=== PATIENT | female | born 1970 | race Two or more races ===

== ENCOUNTER 2025-01-16 09:30 | Inpatient (IN) | payer OTHER ==
[~2025-01-16] VITALS: Ht 165.1 cm; Wt 83.9 kg
[2025-01-16 10:46] VITALS: BP 128/78
[2025-01-16 11:24] LABS: COVID-19 AG NEGATIVE (NEGATIVE)
[2025-01-16] MEDS ORDERED: TRICOR (12:10)
[2025-01-16] MEDS ORDERED: METFORMIN (12:10)
[2025-01-16] MEDS ORDERED: PRAVASTATIN SOD40 MG (12:11)
[2025-01-22 09:41] LABS: RH NEGATIVE
[2025-01-22] MEDS ORDERED: MORPHINE SULFATE 4 MG/ML CARTRIDGE IV PRN (16:30)
[2025-01-22] MEDS ORDERED: OxyCODONE HCL 5 MG TABLET (ROXICODONE) PO PRN (16:30)
[2025-01-22] MEDS ORDERED: RINGERS SOLUTION,LACTATED 1,000 ML IV SCH (16:30)
[2025-01-22] MEDS ORDERED: KETOROLAC TROMETHAMINE 30 MG VIAL IV ONE (16:30)
[2025-01-22] MEDS ORDERED: CEFAZOLIN SODIUM 1,000 MG VIAL IV SCH (17:00)
[2025-01-22] MEDS ORDERED: METOCLOPRAMIDE HCL 5 MG/ML VIAL IV SCH (17:00)
[2025-01-22] MEDS ORDERED: SIMETHICONE 125 MG CAPSULE PO SCH (17:00)
[2025-01-22] MEDS ORDERED: MORPHINE SULFATE 4 MG/ML VIAL IV ONE (17:15)
[2025-01-22] MEDS ORDERED: METRONIDAZOLE/SODIUM CHLORIDE 500 MG/100 ML PIGGYBACK IV ONE (17:45)
[2025-01-22] MEDS ORDERED: CEFAZOLIN SODIUM 1,000 MG VIAL IV ONE (17:45)
[2025-01-22] MEDS ORDERED: ACETAMINOPHEN 500 MG GEL..CAP PO SCH (18:00)
[2025-01-22 18:32] LABS: BASO % 0.4 % (0.1-1.2); EOS # 0.05 (0.04-0.54); EOS % 0.9 % (0.7-7.0); LYMPH # 1.67 (1.18-3.74); LYMPH % 29.6 % (19.3-53.1); MEAN PLATELET VOLUME 12.70 fl (9.4-12.4); MONO # 0.19 (0.24-0.82); MONO % 3.4 % (4.7-12.5); NEUT # 3.69 (1.56-6.13); NEUT % 65.3 % (34.0-71.1); RED CELL DISTRIBUTION WIDTH 13.4 % (11.6-14.4)
[2025-01-22 18:52] LABS: BUN CREA RATIO 16.0 (7.0-25.0); CREATININE SERUM 0.75 mg/dL (0.55-1.02); GFR 79.93; GLUCOSE FASTING 139.0 mg/dL (65-100); OSMOLALITY SERUM 281.0 MOSM/KG (275-295)
[2025-01-22] MEDS ORDERED: CELECOXIB 200 MG CAPSULE PO SCH (21:00)
[2025-01-22] MEDS ORDERED: DOCUSATE SODIUM 100MG CAP PO SCH (21:00)
[2025-01-22] MEDS ORDERED: FAMOTIDINE/PF 20 MG/2 ML VIAL IV PUSH SCH (21:00)
[2025-01-22] MEDS ORDERED: GABAPENTIN 300 MG CAPSULE PO SCH (21:00)
[2025-01-22 21:30] VITALS: BP 129/79
[2025-01-23 02:51] VITALS: BP 118/76; O2SAT 95
[2025-01-23 03:33] LABS: BASO % 0.3 % (0.1-1.2); EOS # 0.01 (0.04-0.54); EOS % 0.1 % (0.7-7.0); LYMPH # 1.39 (1.18-3.74); LYMPH % 17.5 % (19.3-53.1); MEAN PLATELET VOLUME 12.80 fl (9.4-12.4); MONO # 0.28 (0.24-0.82); MONO % 3.5 % (4.7-12.5); NEUT # 6.25 (1.56-6.13); NEUT % 78.5 % (34.0-71.1); RED CELL DISTRIBUTION WIDTH 13.4 % (11.6-14.4)
[2025-01-23 03:56] LABS: BUN CREA RATIO 14.0 (7.0-25.0); CREATININE SERUM 0.69 mg/dL (0.55-1.02); GFR 88.01; GLUCOSE FASTING 128.0 mg/dL (65-100); OSMOLALITY SERUM 276.0 MOSM/KG (275-295)
[2025-01-23 08:48] VITALS: BP 99/62
[2025-01-23] MEDS ORDERED: ENOXAPARIN SODIUM 40 MG/0.4 ML SYRINGE SUBCUTANEO SCH (09:00)
== END 2025-01-23 12:01 | disposition home or self-care (01) | DRG 741 ==
LOC: O/R 01-22 06:42 → SURH 01-22 09:30 → OB/GYN 01-22 17:22 → SURH 01-22 18:15 → OB/GYN 01-23 12:01
PROVIDERS: Obstetrics & Gynecology; ADMIT Obstetrics & Gynecology Gynecologic Oncology; ATTEND Obstetrics & Gynecology Gynecologic Oncology
PROC: 07BC4ZZ Excision of Pelvis Lymphatic, Percutaneous Endoscopic Approach (ICD-10-PCS; 2025-01-22)
PROC: 0UT74ZZ Resection of Bilateral Fallopian Tubes, Percutaneous Endoscopic Approach (ICD-10-PCS; 2025-01-22)
PROC: 0UT24ZZ Resection of Bilateral Ovaries, Percutaneous Endoscopic Approach (ICD-10-PCS; 2025-01-22)
PROC: 0UT94ZZ Resection of Uterus, Percutaneous Endoscopic Approach (ICD-10-PCS; principal; 2025-01-22 18:15)
DX: C54.1 Malignant neoplasm of endometrium (principal)